=== PATIENT | male | born 1985 | race Two or more races ===

== ENCOUNTER 2021-09-21 20:03 | Emergency (ER) | payer MEDICAID ==
[~2021-09-21] VITALS: Ht 167.6 cm; Wt 79.4 kg
[2021-09-21 20:03] VITALS: BP 125/68
== END 2021-09-22 00:13 | disposition left against medical advice (07) ==
LOC: ER 20:03
DX: R51.9 Headache, unspecified (principal); M54.50 Low back pain, unspecified; M79.632 Pain in left forearm; R07.89 Other chest pain; R11.2 Nausea with vomiting, unspecified; Z53.21 Procedure and treatment not carried out due to patient leaving prior to being seen by health care provider; V49.49XA Driver injured in collision with other motor vehicles in traffic accident, initial encounter; Y93.89 Activity, other specified; Y92.410 Unspecified street and highway as the place of occurrence of the external cause; Y99.8 Other external cause status
CPT/HCPCS: 70450; 71045; 72131; 73090

== ENCOUNTER 2025-02-18 20:38 | Emergency (ER) | payer MEDICAID, OTHER ==
[~2025-02-18] VITALS: Ht 167.6 cm; Wt 80.0 kg
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
[2025-02-18 22:30] VITALS: BP 142/89; PULSE 70; RESP 16; TEMP 97.9; O2SAT 99
[2025-02-18] MEDS ORDERED: CYCL-837 PO (22:30)
[2025-02-18] MEDS ORDERED: IBUP-1455 PO (22:30)
[2025-02-18] MEDS ORDERED: OXYCODONE W/ ACETAMINOPHEN 5/325MG TABLET PO ONE (22:45)
== END 2025-02-18 22:45 | disposition home or self-care (01) ==
LOC: ER 20:38
DX: S80.12XA Contusion of left lower leg, initial encounter (principal); S60.512A Abrasion of left hand, initial encounter; M79.652 Pain in left thigh; V89.2XXA Person injured in unspecified motor-vehicle accident, traffic, initial encounter; Y93.I9 Activity, other involving external motion; Y92.488 Other paved roadways as the place of occurrence of the external cause; Y99.8 Other external cause status
CPT/HCPCS: 73130; 74176

== ENCOUNTER 2025-02-27 16:35 | Emergency (ER) | payer MEDICAID, OTHER ==
[~2025-02-27] VITALS: Ht 167.6 cm; Wt 87.4 kg
[~2025-02-27 16:35] MED LIST: CYCL-837 PO; IBUP-1455 PO
[2025-02-27 16:38] VITALS: BP 146/92; PULSE 109; RESP 18; TEMP 97.9; O2SAT 99
== END 2025-02-27 17:01 | disposition left against medical advice (07) ==
LOC: ER 16:35
DX: M25.562 Pain in left knee (principal); Z79.899 Other long term (current) drug therapy